=== PATIENT | female | born 1995 | race Caucasian/White ===

== ENCOUNTER 2018-01-31 19:24 | Emergency (ER) | payer OTHER ==
[2018-01-31 19:57] VITALS: BP 111/62
--- NOTE | 2018-01-31 20:17 | UC ---
Abdominal Pain Female HPI - HPI Summary HPI Summary: Patient urgent care tonight with chief complaint nausea vomiting diarrhea and fever for the past 24 hours. Notes decreased urination believes last time she urinated was this morning. Patient reports a 6 month history of intermittent episodes of nausea vomiting diarrhea no fevers has not had any GI workup. No recent antibiotics no recent travel no illness exposures - History of Current Complaint Chief Complaint: UCGI Stated Complaint: UPSET STOMACH, DIARRHEA, VOMITING Time Seen by Provider: 01/31/18 20:01 Hx Obtained From: Patient Hx Last Menstrual Period: ~01/17/18 ?: No Onset/Duration: Gradual Onset - 6month, Worse Since - past 24 hours Timing: Constant Pain Intensity: 9 Pain Scale Used: 0-10 Numeric Location: Diffuse Radiates: No Character: Colicy, Cramping Aggravating Factor(s): Food, Movement Alleviating Factor(s): Nothing Associated Signs and Symptoms: Positive: Fever, Decreased Appetite, Nausea, Vomiting, Diarrhea Allergies/Adverse Reactions: Allergies Allergy/AdvReac Type Severity Reaction Status Date / Time Penicillins Allergy Hives and Verified 01/31/18 19:50 Vomiting Home Medications: Home Medications Oral Control 1 tab PO DAILY 01/31/18 [History] PMH/Surg Hx/FS Hx/Imm Hx Previously Healthy: No - PCOS - Surgical History Surgical History: Yes Surgery Procedure, Year, and Place: Bilateral Ear Tubes as an Infant - Family History Known Family History: Positive: None - Social History Occupation: Employed Full-time Lives: With Family Alcohol Use: Occasionally Substance Use Type: None Smoking Status (MU): Never Smoked Tobacco Household Exposure Type: Cigarettes - Immunization History Vaccination Up to Date: Yes Review of Systems Constitutional: Fever, Chills, Fatigue Skin: Negative Eyes: Negative ENT: Negative Respiratory: Negative Cardiovascular: Negative Gastrointestinal: Abdominal Pain, Vomiting, Diarrhea, Nausea Genitourinary: Negative Motor: Negative Neurovascular: Negative Musculoskeletal: Negative Neurological: Negative Psychological: Negative Is Patient Immunocompromised?: No All Other Systems Reviewed And Are Negative: Yes Physical Exam Triage Information Reviewed: Yes Appearance: Well-Nourished, Ill-Appearing, Pain Distress Vital Signs: Initial Vital Signs Temp 102.2 F 01/31/18 19:46 Pulse 136 01/31/18 19:46 Resp 16 01/31/18 19:46 BP 111/62 01/31/18 19:46 Pulse Ox 100 07/08/18 19:46 Vital Signs Reviewed: Yes Eye Exam: Normal Eyes: Positive: Conjunctiva Clear ENT Exam: Normal ENT: Positive: Normal ENT inspection, Hearing grossly normal, Pharynx normal, TMs normal, Uvula midline. Negative: Nasal congestion, Trismus, Muffled voice, Hoarse voice, Dental tenderness, Sinus tenderness Dental Exam: Normal Neck exam: Normal Neck: Positive: Supple, Nontender, No Lymphadenopathy Respiratory Exam: Normal Respiratory: Positive: Chest non-tender, Lungs clear, Normal breath sounds, No respiratory distress, No accessory muscle use Cardiovascular Exam: Normal Cardiovascular: Positive: No Murmur, Pulses Normal, Brisk Capillary Refill, Tachycardia Abdominal Exam: Normal Abdomen Description: Positive: Distended, Guarding, Peritoneal Signs. Negative : CVA Tenderness (R), CVA Tenderness (L), McBurney's Point Tenderness, Pulsatile Mass, Splenomegaly Bowel Sounds: Positive: Hyperactive Musculoskeletal Exam: Normal Musculoskeletal: Positive: Strength Intact, ROM Intact, No Edema Neurological Exam: Normal Neurological: Positive: Alert, Muscle Tone Normal Psychological Exam: Normal Skin Exam: Normal Abd Pain Female Course/Dx - Course Course Of Treatment: npo, d/c to follow immediatly at [facility] (patient hospital preference) ED - Differential Dx/Diagnosis Provider Diagnoses: acute abdomen pain, dehydration, Discharge - Sign-Out/Discharge Documenting (check all that apply): Discharge/Admit/Transfer - Discharge Plan Condition: Fair Disposition: HOME Discharge Disposition Comment: [facility] ED Patient Education Materials: Acute Nausea and Vomiting (ED), Acute Diarrhea (ED ), Abdominal Pain (ED) Referrals: Mari Doll MD [Primary Care Provider] - Additional Instructions: I am discharging you from the urgent care to go directly to the emergency department from comprehensive assessment and treatment---Nothing to eat or drink until you are cleared by the emergency department doctor - Billing Disposition and Condition Condition: FAIR Disposition: Home
[2018-01-31] MEDS ORDERED: Acetaminophen TAB* 325 MG PO ONE (20:19)
== END 2018-01-31 20:32 | disposition home or self-care (01) ==
LOC: UCCORT 19:24
DX: R10.9 Unspecified abdominal pain (principal); E86.0 Dehydration; Z88.0 Allergy status to penicillin
CPT/HCPCS: 81003; 84702; 99202; A9270-GY; G0463

== ENCOUNTER 2019-08-05 11:32 | Emergency (ER) | payer BC, OTHER ==
--- OUTSIDE RECORDS SUMMARY | 2019-08-05 12:32 | XMS REPORT | Continuity of Care Document ---
:1995 External Reference #:[id number] Author Name Bebe Preston NP (transmitted by agent of provider Giana Webb) Address [address] [place] [id number] Problems Description No Information Available Social History Type Date Description Comments Sex Unknown Tobacco Use Start: Unknown Never Smoked Cigarettes ETOH Use Currently consumes alcohol Weekly Recreational Drug Use Denies Drug Use Tattoo/Piercing Pierced ears Tattoo/Piercing Tattoo 2 Seat Belt/Car Seat always uses seat belt Guns in Home Yes, Locked Up Smoke Alarms Yes Smoke Alarms Carbon Monoxide Detector: Yes Recent Travel There has not been recent travel abroad Allergies, Adverse Reactions, Alerts Active Allergies Reaction Severity Comments Date Penicillin Hives 08/01/2019 Medications Active Medications SIG Qnty Indications Ordering Provider Date Sprintec 28 Take 1 tablet by 84tabs Bebe Preston, mouth every day 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.25-35mg-mcg Tablets at the same time Magnesium 1 by mouth every Unknown 500mg day-otc Capsules Vitamin B6 every at bedtime Unknown 50mg Tablets and in the in the morning Vitamin B12 2 by mounth a day Unknown 500mcg Tablets Immunizations Description No Information Available Vital Signs Date Vital Result Comment 08/01/2019 2:25pm BP Systolic 128 mmHg BP Diastolic 80 mmHg Weight 187.00 lb Height 65 inches 5'5" BMI (Body Mass Index) 31.1 kg/m2 Results Test Acquired Date Facility Test Result H/L Range Note Affirm-In House 08/01/2019 Inhouse lab ([facility]) Balbina <pending> Gardnerella <pending> Trichomonas <pending> Laboratory test finding 08/01/2019 Inhouse lab ([facility]) Chlamydia < pending> Gonorrhea <pending> Procedures Description No Information Available Medical Devices Description No Information Available Encounters Type Date Location Provider Dx Diagnosis Office Visit 08/01/2019 [place] [facility] Bebe Preston, Z01.419 Encntr for ob 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 exam (general) (routine) w/o abn findings Z11.3 Encntr screen for infections w sexl mode of transmiss Z30.41 Encounter for surveillance of contraceptive pills R68.82 Decreased libido E28.2 Polycystic ovarian syndrome Assessments Date Code Description Provider 08/01/2019 Z01.419 Encounter for gynecological examination Bebe Preston NP (general) (routine) without abnormal findings 08/01/2019 Z11.3 Encounter for screening for infections with a Bebe Preston NP predominantly sexual mode of transmission 08/01/2019 Z30.41 Encounter for surveillance of contraceptive Bebe Preston NP pills 08/01/2019 R68.82 Decreased libido Bebe Preston NP 08/01/2019 E28.2 Polycystic ovarian syndrome Bebe Preston NP Plan of Treatment 08/01/2019 - Bebe Preston NPZ01.419 Encounter for gynecological examination (general) (routine) without abnormal findingsNew Labs:Pap Ig RF Apthpv ALL, 16& amp;18/45, Ordered: 08/01/19Comments:Pap today per guidelines, last pap negative in 2016. Reviewed ACOG guidelines. Enc monthly SBEEnc regular physical activity and well balanced dietEnc multivitamin and vitd3 Pt maintains regular f /u with PCP for dm, cholesterol, tsh screeningFollow up:RTO 1 year FYE and prnZ11.3 Encounter for screening for infections with a predominantly sexual mode of transmissionComments:Pt accepts GC/Chlam cultures today. Declines bloodwork. Encouraged safe sex practices such as condom use.Z30.41 Encounter for surveillance of contraceptive pillsComments:Weight and BP WNL.Pt liking the pills. Does have some bloating on this current brand, wants to give a few more month before switching. Aware COCs recommended for tx of PCOS.Aware to take at same time everyday and pills do not protect against STDs or HIVEnc regular physical activity, avoiding cigarettes, and Vitd3 4000iu/dayReviewed OCP danger signs and reasons to call officeRefills sent x 1 year. Advised if still having bloating or concerns, we can try a lower dose OCP, she will call back with any persisting or worsening sx.R68.82 Decreased libidoComments:Pt asking about low sex drive, reviewed importance of discussing this with partner, scheduling alonetime/date night each week to connect and for intimacy, coconut oil for lubrication if needed, regular physical exercise which is shown to improve both physical and mental well being, release endorphins, improves confidence and sleep so in turn may notice improvement in sex drive. Reviewed can be side effect of BC. Enc regular exercise and Vitd3 4000iu/day which can improve mood. She will try the suggestions.E28.2 Polycystic ovarian syndromeComments:Enc pt to have routine screenings with her PCP for diabetes and cholesterol d/t PCOSReviewed with ptPCOS is a metabolic condition characterized by amenorrhea and can lead to inc risk of obesity, insulin resistance and diabetes so PCP f/u is recommended.PCOS has been controlled by COCs, she will continue on current brand. Functional Status Functional Condition Comment Date Status Glasses Active Mental Status Description No Information Available Referrals Description No Information Available
--- OUTSIDE RECORDS SUMMARY | 2019-08-05 12:32 | XMS REPORT | Continuity of Care Document ---
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.25-35mg-mcg Tablets at the same time Magnesium [...] BMI (Body Mass Index) 31.1 kg/m2 Results Description No Information Available Procedures Description No Information Available Medical Devices Description No Information Available Encounters Type Date Location Provider Dx Diagnosis Office Visit 08/01/2019 [place] [facility] Bebe Preston, Z01.419 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 (general) (routine) w/o abn findings Z11.3 Encntr screen for infections w sexl mode of transmiss Z30.41 Encounter for surveillance of contraceptive pills R68.82 Decreased libido Assessments Date Code Description Provider 08/01/2019 Z01.419 Encounter for gynecological examination Bebe Preston NP (general) (routine) without abnormal findings 08/01/2019 Z11.3 Encounter for screening for infections with a Bebe Preston NP predominantly sexual mode of transmission 08/01/2019 Z30.41 Encounter for surveillance of contraceptive Bebe Preston NP pills 08/01/2019 R68.82 Decreased libido Bebe Preston NP Plan of Treatment 08/01/2019 - Bebe Preston NPZ01.419 Encounter for gynecological examination (general) (routine) without abnormal findingsNew Labs:Pap Ig RF Apthpv ALL, 16& amp;18/45, Ordered: 08/01/19Comments:Pap today per guidelines, last pap negative in 2015. Reviewed ACOG guidelines. Enc monthly SBEEnc regular [...] contraceptive pillsComments:Weight and BP WNL.Pt liking the pills, no side effectsAware to take at same time everyday and [...] to improve both physical and mental well being , release endorphins, improves confidence and sleep so in turn may notice improvement in sex drive. Pt aware depo and herdepression medication can reduce libido. Pt grateful for info. Will try suggestions. Functional Status Functional Condition Comment Date Status Glasses Active Mental Status Description No Information Available Referrals Description No Information Available
[2019-08-05 12:57] VITALS: BP 142/88
--- NOTE | 2019-08-05 13:05 | UC ---
Throat Pain/Nasal Kevin HPI - HPI Summary HPI Summary: 24 yo with one week history of sore throat and cough, with ear pressure and pain and worsening sinus congestion, not responding to use of decongestants. No fever, no shortness of breath, bilateral ear pain. - History of Current Complaint Chief Complaint: UCRespiratory Stated Complaint: FLU SYMP Time Seen by Provider: 08/05/19 12:56 Hx Obtained From: Patient Hx Last Menstrual Period: 08/04/19 Onset/Duration: Gradual Onset, Lasting Days Severity: Moderate Pain Intensity: 8 Cough: Productive Associated Signs & Symptoms: Positive: Dysphagia, Hoarseness, Sinus Discomfort, Nasal Discharge - Epiglottits Risk Factors Epiglottis Risk Factors: Negative - Allergies/Home Medications Allergies/Adverse Reactions: Allergies Allergy/AdvReac Type Severity Reaction Status Date / Time Penicillins Allergy Hives and Verified 08/05/19 12:46 Vomiting Home Medications: Home Medications Guaifen/Phenyleph/Acetaminophn [Tylenol Sinus Severe Caplet] 2 cap PO PRN [History] Norgestimate-Ethinyl Estradiol [Sprintec 28 0.25-35 mg-Mcg] 1 tab PO DAILY 08/05 [History Confirmed 08/05/19] PMH/Surg Hx/FS Hx/Imm Hx Previously Healthy: Yes - Surgical History Surgical History: Yes Surgery Procedure, Year, and Place: Bilateral Ear Tubes as an - Family History Known Family History: Positive: None, Non-Contributory - Social History 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 Negative: Shortness Of Breath Cardiovascular: Negative: Palpitations, Chest Pain Gastrointestinal: Positive: Nausea. Negative: Vomiting Genitourinary: Positive: Negative Motor: Positive: Negative Neurovascular: Positive: Negative Musculoskeletal: Positive: Myalgia Neurological: Positive: Headache Psychological: Positive: Negative Is Patient Immunocompromised?: No Physical Exam Triage Information Reviewed: Yes Appearance: Ill-Appearing - looks mildly unwell Vital Signs: Initial Vital Signs Temp 97.7 F 08/05/19 12:49 Pulse 82 08/05/19 12:49 Resp 16 08/05/19 12:49 BP 142/88 08/05/19 12:49 Pulse Ox 99 08/05/19 12:49 Eyes: Positive: Conjunctiva Clear ENT: Positive: Pharyngeal erythema, TM dull - bilateral serous fluid, Sinus tenderness Neck: Positive: Supple, Nontender, No Lymphadenopathy Respiratory: Positive: Lungs clear, Normal breath sounds Cardiovascular: Positive: RRR, No Murmur Musculoskeletal Exam: Normal Neurological Exam: Normal Psychological Exam: Normal Skin Exam: Normal Throat Pain/Nasal Course/Dx - Course Course Of Treatment: doxycycline for treatment of sinusitis. Decongestants and flonase as needed for relief of symptoms. - Differential Dx/Diagnosis Differential Diagnosis/HQI/PQRI: Otitis Media, Pharyngitis, Sinusitis, URI Provider Diagnosis: Sinusitis Discharge ED - Sign-Out/Discharge Documenting (check all that apply): Patient Departure All imaging exams completed and their final reports reviewed: No Studies - Discharge Plan Condition: Stable Disposition: HOME Prescriptions: Doxycycline Hyclate [Morgidox] 100 mg PO BID #14 capsule Patient Education Materials: Sinusitis (ED) Forms: *Work Release Referrals: No Primary Care Phys,NOPCP [Primary Care Provider] - Additional Instructions: Your blood pressure is elevated today to 142/88, possibly secondary to decongestants. Take doxycycline for treatment of sinus infection, and ensure that you back up on your contraception due to possible decreased pill effectiveness as a result of the antibiotic. You can use over the counter steroid nose spray (Flonase) 2 sprays to both nostrils once daily for relief of symptoms, and you can also use ibuprofen. Pseudoephedrine 30mg every 6 hours can also help with congestion, sinus and ear pain. - Billing Disposition and Condition Condition: STABLE Disposition: Home
== END 2019-08-05 13:23 | disposition home or self-care (01) ==
LOC: UCCORT 11:32
DX: J32.9 Chronic sinusitis, unspecified (principal); H92.09 Otalgia, unspecified ear; R05 Cough; R11.0 Nausea; M79.10 Myalgia, unspecified site; Z88.0 Allergy status to penicillin
CPT/HCPCS: 99212; G0463